=== PATIENT | female | born 1955 | race Caucasian/White ===

== ENCOUNTER 2018-05-06 12:24 | Emergency (ER) | payer OTHER ==
[~2018-05-06 12:24] MED LIST: ACETAZOLAMIDE250 MG PO; DIAMOX250 MG PO; LEVAQUIN750 M1 PO; MEDROL DOSEPAK4 MG PO; METFORMIN500 MG PO; METICORTEN1 MG PO; PREDNISONE10 MG PO; PROAIR HFA0.09 MG/AC INH; PROAIR HFA8.5 GM INH; SPIRIVA18 MCG PO; SYMBICORT1 AE1 INH; ZITHROMAX TRI-500 MG PO; ZITHROMAX500 MG PO
[2018-05-06] MEDS ORDERED: AVPAK AZITHROM250 MG PO (12:45)
[2018-05-06] MEDS ORDERED: PREDNISONE50 MG PO (12:45)
== END 2018-05-06 12:58 | disposition home or self-care (01) ==
LOC: ED 12:24
DX: J44.1 Chronic obstructive pulmonary disease with (acute) exacerbation (principal); I10 Essential (primary) hypertension; Z88.0 Allergy status to penicillin; Z79.899 Other long term (current) drug therapy

== ENCOUNTER 2018-07-19 06:23 | Inpatient (IN) | payer OTHER ==
[2018-07-19] VITALS (8 sets, daily range): BP systolic 101–120; BP diastolic 52–93
[~2018-07-19] VITALS: Ht 170.2 cm; Wt 63.0 kg
--- NOTE | ~2018-07-19 | EKG ---
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
--- NOTE | ~2018-07-19 | PR ---
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 She is gradually getting better, but she still has shortness of breath on exertion. She is a known case of COPD with emphysema, on oxygen at home, history of hypotension, leukocytosis, severe malnutrition, severe sepsis in the past, history of tachycardia in the past. OBJECTIVE: GENERAL: On examination, the patient is conscious, alert and oriented, sitting comfortably in the bed. VITAL SIGNS: Her blood pressure is 98/50, pulse 74, respirations 20, temperature 98.5. CHEST: Having occasional wheezes. No crepitation. HEART: Regular. ABDOMEN: Soft. Her blood culture is negative. EKG shows borderline left axis deviation, no acute change. CT of the chest shows bilateral upper lobe pneumonia. ProBNP is 45. The patient is gradually getting better. JAELYN JEROME MD CM:PNTRANS [id number] JAELYN JEROME MD 07/22/18 0643 interface
--- NOTE | ~2018-07-19 | DS ---
[place], [place] DISCHARGE SUMMARY [id number] UNIT #: [id number] ROOM: 502 DOCTOR: JAELYN JEROME MD BIRTHDATE: [birth year] DOS: The patient has been admitted to the hospital with acute excerebration of COPD with emphysema with bilateral pneumonia. She is gradually getting better. She does not have any chest pain. Her breathing with oxygen is fairly good. She is able to ambulate a little bit also and on examination, she does not have any wheezing or crepitation. Rest of her examination is fairly good. Her CBC today showed white count 10,400, hemoglobin 13.8, hematocrit 43.1. Creatinine level is 0.54. Her blood pressure 112/66, pulse 78, respirations 18, temperature 98.4. Chest is clear, heart is regular. The patient was treated with methylprednisone 125 mg IV, aerosol treatment with albuterol and cephalexin 1 g IV daily and doxycycline 100 mg twice daily. She has improved very well. She will look into take her antibiotic at home and also continue taking prednisone at home and have aerosol treatment at home and also take her Breo at home. I will follow her in the office next week. JAELYN JEROEM MD CM:EVITA [id number] JAELYN JEROME MD 07/22/18 1112 interface
[~2018-07-19 06:23] MED LIST changes: +AVPAK AZITHROM250 MG PO; +PREDNISONE50 MG PO
[2018-07-19 06:58] LABS: BASO % 0.2 % (0.0-1.0); EOS % 0.3 % (1.0-4.0); HEMATOCRIT 44.2 % (37.0-47.0); HEMOGLOBIN 13.7 g/dl (12.0-16.0); LYMPH # 0.7 10*3/uL (1.3-4.4); MEAN CELL VOLUME 96.9 fl (81.0-99.0); MEAN PLATELET VOLUME 10.1 fl (9.6-12.3); MONO # 0.8 10*3/uL (0.1-1.0); MONO % 8.4 % (3.0-9.0); NEUT # 7.6 10*3/uL (2.3-7.9); PLATELET COUNT AUTOMATED 175 10*3/uL (130-400); RED BLOOD COUNT 4.56 10*6/uL (4.10-5.10); RED CELL DISTRI WIDTH 12.1 % (0-14.5); WHITE BLOOD COUNT 9.2 10*3/uL (4.8-10.8)
[2018-07-19 07:06] LABS: ACT PARTIAL THROMBO TIME 24.9 SECONDS (20.8-31.5); INTERNATIONAL NORM RATIO 0.9 (2.0-3.5)
[2018-07-19 07:23] LABS: ALBUMIN 3.4 gm/dl (3.1-4.5); ALKALINE PHOSPHATASE 71 U/L (45-117); BUN 11 mg/dl (7-24); CHLORIDE 98 mmol/L (98-107); CREATININE 0.55 mg/dL (0.55-1.02); POTASSIUM 3.9 mmol/L (3.5-5.1); SGOT/AST 72 IU/L (3-35); SGPT/ALT 63 U/L (12-78); SODIUM 138 mmol/L (136-145); TOTAL PROTEIN 7.7 gm/dL (6.4-8.2)
[2018-07-19 07:29] LABS: TROPONIN I < 0.015 ng/ml (<0.045)
[2018-07-19] MEDS ORDERED: LEVAQUIN500 M2 PO (12:00)
[2018-07-19] MEDS ORDERED: BREO ELLIPTA 21 EACH INH (12:49)
[2018-07-19] MEDS ORDERED: INCRUSE ELLI62.5 MCG INH (12:51)
[2018-07-20] VITALS: BP 115/51
[2018-07-20 12:00] VITALS: BP 105/47
[2018-07-20 16:00] VITALS: BP 96/41
[2018-07-20 20:00] VITALS: BP 120/60
[2018-07-21] VITALS: BP 110/40
[2018-07-21 08:00] VITALS: BP 98/50
[2018-07-21 12:00] VITALS: BP 100/50
[2018-07-21 16:00] VITALS: BP 110/48
[2018-07-21 20:00] VITALS: BP 107/51
[2018-07-22] VITALS: BP 118/67
[2018-07-22 07:06] LABS: BASO % 0.1 % (0.0-1.0); HEMATOCRIT 43.1 % (37.0-47.0); HEMOGLOBIN 13.8 g/dl (12.0-16.0); LYMPH # 1.1 10*3/uL (1.3-4.4); LYMPH % 10.1 % (27.0-41.0); MEAN CELL VOLUME 95.6 fl (81.0-99.0); MEAN CORPUSCULAR HGB 30.6 pg (27.0-31.0); MONO # 0.5 10*3/uL (0.1-1.0); NEUT # 8.7 10*3/uL (2.3-7.9); NEUT % 84.3 % (47.0-73.0); PLATELET COUNT AUTOMATED 219 10*3/uL (130-400); RED BLOOD COUNT 4.51 10*6/uL (4.10-5.10); RED CELL DISTRI WIDTH 11.7 % (0-14.5); WHITE BLOOD COUNT 10.4 10*3/uL (4.8-10.8)
[2018-07-22 07:25] LABS: CREATININE 0.54 mg/dL (0.55-1.02)
[2018-07-22 08:00] VITALS: BP 112/66
== END 2018-07-22 11:43 | disposition home or self-care (01) | DRG 193 ==
LOC: ED 06:23 → 5E 07:30 → EDHOLD 07:30 → 5E 11:18
PROVIDERS: Internal Medicine; Student in an Organized Health Care Education/Training Program
DX: J18.1 Lobar pneumonia, unspecified organism (principal); J96.21 Acute and chronic respiratory failure with hypoxia; J43.9 Emphysema, unspecified; R91.1 Solitary pulmonary nodule; E05.80 Other thyrotoxicosis without thyrotoxic crisis or storm; Z88.1 Allergy status to other antibiotic agents; Z87.891 Personal history of nicotine dependence; Z87.01 Personal history of pneumonia (recurrent); Z82.49 Family history of ischemic heart disease and other diseases of the circulatory system; Z79.2 Long term (current) use of antibiotics; Z79.52 Long term (current) use of systemic steroids

== ENCOUNTER → 2018-07-27 | Outpatient (CLI) | payer OTHER ==
[~2018-07-27] MED LIST changes: +BREO ELLIPTA 21 EACH INH; +INCRUSE ELLI62.5 MCG INH; +LEVAQUIN500 M2 PO
== END | disposition home or self-care (01) ==
LOC: RAD 10:13
DX: J18.9 Pneumonia, unspecified organism (principal); J43.8 Other emphysema; Z87.891 Personal history of nicotine dependence

== ENCOUNTER → 2019-05-08 | Outpatient (CLI) | payer OTHER | END | disposition home or self-care (01) | LOC: US 14:30 | DX: R10.2 Pelvic and perineal pain (principal); R14.0 Abdominal distension (gaseous) ==

== ENCOUNTER 2019-09-14 12:50 | Emergency (ER) | payer OTHER, MEDICARE ==
[~2019-09-14] VITALS: Ht 170.1 cm; Wt 63.5 kg
[2019-09-14 12:54] VITALS: BP 102/57
== END 2019-09-14 15:45 | disposition home or self-care (01) ==
LOC: ED 12:50
DX: J44.9 Chronic obstructive pulmonary disease, unspecified (principal); Z99.81 Dependence on supplemental oxygen; Z79.2 Long term (current) use of antibiotics; Z79.899 Other long term (current) drug therapy; Z88.1 Allergy status to other antibiotic agents

== ENCOUNTER → 2020-11-16 | Outpatient (CLI) | payer OTHER, MEDICARE ==
[2020-11-16 09:43] LABS: BASO # 0.1 10*3/uL (0.0-0.1); BASO % 0.7 % (0.0-1.0); EOS # 0.3 10*3/uL (0.0-0.4); EOS % 2.7 % (1.0-4.0); HEMATOCRIT 43.4 % (37.0-47.0); LYMPH # 1.8 10*3/uL (1.3-4.4); LYMPH % 16.6 % (27.0-41.0); MEAN CELL VOLUME 95.4 fl (81.0-99.0); MEAN CORPUSCULAR HGB 29.2 pg (27.0-31.0); MEAN CORPUSCULAR HGB CONC 30.6 g/dl (33.0-37.0); MEAN PLATELET VOLUME 10.2 fl (9.6-12.3); MONO # 0.7 10*3/uL (0.1-1.0); MONO % 6.5 % (3.0-9.0); NEUT # 7.7 10*3/uL (2.3-7.9); NEUT % 73.3 % (47.0-73.0); PLATELET COUNT AUTOMATED 234 10*3/uL (130-400); RED BLOOD COUNT 4.55 10*6/uL (4.10-5.10); RED CELL DISTRI WIDTH 12.4 % (0-14.5); WHITE BLOOD COUNT 10.5 10*3/uL (4.8-10.8)
[2020-11-16 10:03] LABS: CHLORIDE 102 mmol/L (98-107); POTASSIUM 4.1 mmol/L (3.5-5.1); SODIUM 138 mmol/L (136-145)
[2020-11-16 11:04] LABS: ALBUMIN 3.2 gm/dl (3.1-4.5); ALKALINE PHOSPHATASE 85 U/L (45-117); BUN 11 mg/dl (7-24); CREATININE 0.57 mg/dL (0.55-1.02); FREE T4 1.09 ng/dl (0.76-1.46); SGOT/AST 37 IU/L (3-35); SGPT/ALT 51 U/L (12-78); TOTAL PROTEIN 7.4 gm/dL (6.4-8.2)
== END ==
LOC: LAB 08:52 → US 09:00
PROVIDERS: ATTEND Family Medicine
DX: K76.0 Fatty (change of) liver, not elsewhere classified (principal); R16.0 Hepatomegaly, not elsewhere classified; D72.829 Elevated white blood cell count, unspecified; R10.84 Generalized abdominal pain; R63.5 Abnormal weight gain

== ENCOUNTER → 2020-11-26 | Outpatient (CLI) | payer OTHER, MEDICARE | END | disposition home or self-care (01) | LOC: CT 12:32 | PROVIDERS: ATTEND Family Medicine | DX: K76.0 Fatty (change of) liver, not elsewhere classified (principal); J43.9 Emphysema, unspecified; K80.20 Calculus of gallbladder without cholecystitis without obstruction; I70.0 Atherosclerosis of aorta; K42.9 Umbilical hernia without obstruction or gangrene ==

== ENCOUNTER 2021-07-31 07:05 | Inpatient (IN) | payer OTHER, MEDICARE ==
[~2021-07-31] VITALS: Ht 167.6 cm; Wt 66.4 kg
[2021-07-31] VITALS (15 sets, daily range): BP systolic 84–128; BP diastolic 47–66
[~2021-07-31 07:05] MED LIST changes: +CLARITIN-D 121 EACH PO
[2021-07-31] MEDS ORDERED: MUCINEX DM 30/61 TAB PO (08:00)
[2021-07-31] MEDS ORDERED: AVPAK AZITHROM250 M1 PO (08:00)
[2021-07-31 08:06] LABS: BASO % 0.3 % (0.0-1.0); EOS # 0.1 10*3/uL (0.0-0.4); EOS % 0.5 % (1.0-4.0); HEMATOCRIT 43.7 % (37.0-47.0); LYMPH # 0.8 10*3/uL (1.3-4.4); LYMPH % 5.5 % (27.0-41.0); MEAN CELL VOLUME 96.7 fl (81.0-99.0); MEAN CORPUSCULAR HGB 28.8 pg (27.0-31.0); MEAN CORPUSCULAR HGB CONC 29.7 g/dl (33.0-37.0); MEAN PLATELET VOLUME 9.5 fl (9.6-12.3); MONO # 1.3 10*3/uL (0.1-1.0); NEUT # 12.6 10*3/uL (2.3-7.9); NEUT % 83.8 % (47.0-73.0); PLATELET COUNT AUTOMATED 295 10*3/uL (130-400); RED BLOOD COUNT 4.52 10*6/uL (4.10-5.10)
[2021-07-31 08:11] LABS: ABG BASE EXCESS 27.4 mmol/L (-2.0-2.0); ARTERIAL BLOOD GAS PH 7.257 (7.35-7.45); ARTERIAL BLOOD GAS PO2 51.2 (80-90)
[2021-07-31 08:22] LABS: ACT PARTIAL THROMBO TIME 26.2 SECONDS (20.0-32.1)
[2021-07-31 08:28] LABS: ALBUMIN 2.8 gm/dl (3.1-4.5); ALKALINE PHOSPHATASE 106 U/L (45-117); BUN 22 mg/dl (7-24); CHLORIDE 86 mmol/L (98-107); CPK 84 U/L (26-192); CREATININE 0.42 mg/dL (0.55-1.02); POTASSIUM 4.1 mmol/L (3.5-5.1); SGOT/AST 28 IU/L (3-35); SGPT/ALT 44 U/L (12-78); SODIUM 136 mmol/L (136-145); TOTAL PROTEIN 7.7 gm/dL (6.4-8.2)
[2021-07-31 12:27] LABS: ARTERIAL BLOOD GAS PH 7.213 (7.35-7.45); ARTERIAL BLOOD GAS PO2 68.4 (80-90)
[2021-07-31 17:10] LABS: ABG BASE EXCESS 22.9 mmol/L (-2.0-2.0); ARTERIAL BLOOD GAS PH 7.499 (7.35-7.45); ARTERIAL BLOOD GAS PO2 97.4 (80-90)
[2021-07-31 17:19] LABS: BILIRUBIN Negative (Negative); BLOOD Negative (Negative); CLARITY Clear (Clear); COLOR Yellow (Yellow); GLUCOSE Negative (Negative); KETONE 1+ (Negative); LEUKO ESTERASE Negative (Negative); NITRITE Negative (Negative); PH 5.5 (4.5-8.0); SPECIFIC GRAVITY 1.025 (1.001-1.030); UROBILINOGEN 0.2 E.U./dl (0.0-1.0)
[2021-07-31 17:47] LABS: BACTERIA 2+; EPITHELIAL CELLS 21-30
[2021-08-01] VITALS (19 sets, daily range): BP systolic 87–123; BP diastolic 43–75
[2021-08-01 04:58] LABS: ALBUMIN 2.1 gm/dl (3.1-4.5); ALKALINE PHOSPHATASE 80 U/L (45-117); BUN 25 mg/dl (7-24); CHLORIDE 93 mmol/L (98-107); CREATININE 0.54 mg/dL (0.55-1.02); POTASSIUM 4.3 mmol/L (3.5-5.1); SGOT/AST 41 IU/L (3-35); SGPT/ALT 35 U/L (12-78); SODIUM 136 mmol/L (136-145); TOTAL PROTEIN 6.1 gm/dL (6.4-8.2)
[2021-08-01 06:04] LABS: BASO # 0.1 10*3/uL (0.0-0.1); BASO % 0.4 % (0.0-1.0); EOS % 0.1 % (1.0-4.0); HEMATOCRIT 36.6 % (37.0-47.0); LYMPH % 6.8 % (27.0-41.0); MEAN CELL VOLUME 97.3 fl (81.0-99.0); MEAN CORPUSCULAR HGB 28.7 pg (27.0-31.0); MEAN CORPUSCULAR HGB CONC 29.5 g/dl (33.0-37.0); MEAN PLATELET VOLUME 10.4 fl (9.6-12.3); MONO # 0.6 10*3/uL (0.1-1.0); MONO % 4.3 % (3.0-9.0); NEUT # 12.2 10*3/uL (2.3-7.9); NEUT % 86.8 % (47.0-73.0); PLATELET COUNT AUTOMATED 249 10*3/uL (130-400); RED BLOOD COUNT 3.76 10*6/uL (4.10-5.10); RED CELL DISTRI WIDTH 12.1 % (0-14.5)
[2021-08-01 13:28] LABS: HEMATOCRIT 35.9 % (37.0-47.0); MEAN CELL VOLUME 95.5 fl (81.0-99.0); MEAN CORPUSCULAR HGB 29.3 pg (27.0-31.0); MEAN CORPUSCULAR HGB CONC 30.6 g/dl (33.0-37.0); MEAN PLATELET VOLUME 9.8 fl (9.6-12.3); PLATELET COUNT AUTOMATED 242 10*3/uL (130-400); RED BLOOD COUNT 3.76 10*6/uL (4.10-5.10); RED CELL DISTRI WIDTH 12.2 % (0-14.5); WHITE BLOOD COUNT 15.4 10*3/uL (4.8-10.8)
[2021-08-01 13:44] LABS: ALBUMIN 2.2 gm/dl (3.1-4.5); ALKALINE PHOSPHATASE 87 U/L (45-117); BUN 26 mg/dl (7-24); CHLORIDE 95 mmol/L (98-107); CREATININE 0.52 mg/dL (0.55-1.02); PLATELET SUFFICIENCY NORMAL (NORMAL); POTASSIUM 3.8 mmol/L (3.5-5.1); SGOT/AST 59 IU/L (3-35); SGPT/ALT 55 U/L (12-78); SODIUM 140 mmol/L (136-145); TOTAL CELLS COUNTED 100 #CELLS; TOTAL PROTEIN 6.2 gm/dL (6.4-8.2)
[2021-08-01 13:45] LABS: OVALOCYTES FEW; POLYCHROMASIA SLIGHT
[2021-08-01 15:33] LABS: ABG BASE EXCESS 15.9 mmol/L (-2.0-2.0); ARTERIAL BLOOD GAS PH 7.468 (7.35-7.45); ARTERIAL BLOOD GAS PO2 87.5 (80-90)
[2021-08-02] VITALS (13 sets, daily range): BP systolic 90–111; BP diastolic 49–64
[2021-08-02 05:45] LABS: ALKALINE PHOSPHATASE 82 U/L (45-117); BUN 22 mg/dl (7-24); CHLORIDE 99 mmol/L (98-107); CREATININE 0.37 mg/dL (0.55-1.02); POTASSIUM 3.8 mmol/L (3.5-5.1); SGOT/AST 43 IU/L (3-35); SGPT/ALT 55 U/L (12-78); SODIUM 141 mmol/L (136-145)
[2021-08-02 17:30] LABS: HEMATOCRIT 35.9 % (37.0-47.0); MEAN CORPUSCULAR HGB 29.4 pg (27.0-31.0); MEAN CORPUSCULAR HGB CONC 30.9 g/dl (33.0-37.0); MEAN PLATELET VOLUME 9.9 fl (9.6-12.3); NUCLEATED RED BLOOD CELL 0.1 % (0.0-0.0); PLATELET COUNT AUTOMATED 256 10*3/uL (130-400); RED BLOOD COUNT 3.78 10*6/uL (4.10-5.10); RED CELL DISTRI WIDTH 12.5 % (0-14.5); WHITE BLOOD COUNT 14.9 10*3/uL (4.8-10.8)
[2021-08-02 19:32] LABS: PLATELET SUFFICIENCY NORMAL (NORMAL); TOTAL CELLS COUNTED 100 #CELLS
[2021-08-02 20:07] LABS: ABG BASE EXCESS 9.7 mmol/L (-2.0-2.0); ARTERIAL BLOOD GAS PH 7.451 (7.35-7.45)
[2021-08-02] MEDS ORDERED: SYMB160 INH (21:37)
[2021-08-03] VITALS (11 sets, daily range): BP systolic 92–109; BP diastolic 52–71
[2021-08-03 05:35] LABS: ALBUMIN 2.1 gm/dl (3.1-4.5); ALKALINE PHOSPHATASE 71 U/L (45-117); BUN 23 mg/dl (7-24); CHLORIDE 105 mmol/L (98-107); CREATININE 0.46 mg/dL (0.55-1.02); POTASSIUM 4.3 mmol/L (3.5-5.1); SGOT/AST 50 IU/L (3-35); SGPT/ALT 58 U/L (12-78); SODIUM 140 mmol/L (136-145); TRIGLYCERIDES 338 mg/dl (<150)
[2021-08-03 06:10] LABS: HEMATOCRIT 37.3 % (37.0-47.0); MEAN CELL VOLUME 96.9 fl (81.0-99.0); MEAN CORPUSCULAR HGB 28.8 pg (27.0-31.0); MEAN CORPUSCULAR HGB CONC 29.8 g/dl (33.0-37.0); MEAN PLATELET VOLUME 10.5 fl (9.6-12.3); NUCLEATED RED BLOOD CELL 0.1 % (0.0-0.0); PLATELET COUNT AUTOMATED 243 10*3/uL (130-400); RED BLOOD COUNT 3.85 10*6/uL (4.10-5.10); RED CELL DISTRI WIDTH 12.7 % (0-14.5); WHITE BLOOD COUNT 13.6 10*3/uL (4.8-10.8)
[2021-08-03 07:37] LABS: TOTAL CELLS COUNTED 100 #CELLS
[2021-08-03 07:38] LABS: OVALOCYTES FEW; PLATELET SUFFICIENCY NORMAL (NORMAL); POLYCHROMASIA SLIGHT; ROULEAUX SLIGHT
[2021-08-04] VITALS (10 sets, daily range): BP systolic 93–121; BP diastolic 46–60
[2021-08-04 06:29] LABS: BUN 23 mg/dl (7-24); CHLORIDE 104 mmol/L (98-107); POTASSIUM 4.2 mmol/L (3.5-5.1); SODIUM 141 mmol/L (136-145)
[2021-08-04 06:43] LABS: HEMATOCRIT 34.1 % (37.0-47.0); MEAN CELL VOLUME 95.5 fl (81.0-99.0); MEAN CORPUSCULAR HGB 29.4 pg (27.0-31.0); MEAN CORPUSCULAR HGB CONC 30.8 g/dl (33.0-37.0); MEAN PLATELET VOLUME 10.7 fl (9.6-12.3); PLATELET COUNT AUTOMATED 261 10*3/uL (130-400); RED BLOOD COUNT 3.57 10*6/uL (4.10-5.10); RED CELL DISTRI WIDTH 12.7 % (0-14.5); WHITE BLOOD COUNT 11.6 10*3/uL (4.8-10.8)
[2021-08-04 07:49] LABS: ATYPICAL LYMPHS 1 % (0-0); TOTAL CELLS COUNTED 100 #CELLS
[2021-08-04 07:50] LABS: PLATELET SUFFICIENCY NORMAL (NORMAL); POLYCHROMASIA SLIGHT
[2021-08-04 07:51] LABS: ROULEAUX SLIGHT
[2021-08-05] VITALS: BP 105/41
[2021-08-05 04:00] VITALS: BP 110/51
[2021-08-05 08:00] VITALS: BP 114/51
[2021-08-05 12:00] VITALS: BP 100/49
[2021-08-05 16:00] VITALS: BP 106/42
[2021-08-05 20:00] VITALS: BP 93/46
[2021-08-06] VITALS: BP 100/53
[2021-08-06 04:00] VITALS: BP 99/50
[2021-08-06 08:00] VITALS: BP 90/42
[2021-08-06 11:05] LABS: HEMATOCRIT 38.5 % (37.0-47.0); MEAN CELL VOLUME 94.1 fl (81.0-99.0); MEAN CORPUSCULAR HGB 28.9 pg (27.0-31.0); MEAN CORPUSCULAR HGB CONC 30.6 g/dl (33.0-37.0); MEAN PLATELET VOLUME 9.7 fl (9.6-12.3); PLATELET COUNT AUTOMATED 240 10*3/uL (130-400); RED BLOOD COUNT 4.09 10*6/uL (4.10-5.10); RED CELL DISTRI WIDTH 12.1 % (0-14.5)
[2021-08-06 11:21] LABS: ALBUMIN 2.4 gm/dl (3.1-4.5); ALKALINE PHOSPHATASE 66 U/L (45-117); BUN 14 mg/dl (7-24); CHLORIDE 93 mmol/L (98-107); CREATININE 0.45 mg/dL (0.55-1.02); POTASSIUM 4.8 mmol/L (3.5-5.1); SGOT/AST 52 IU/L (3-35); SGPT/ALT 107 U/L (12-78); SODIUM 138 mmol/L (136-145); TOTAL PROTEIN 6.3 gm/dL (6.4-8.2)
[2021-08-06 11:33] LABS: PLATELET SUFFICIENCY NORMAL (NORMAL); TOTAL CELLS COUNTED 100 #CELLS
[2021-08-06 11:40] VITALS: BP 101/47
[2021-08-06 14:11] LABS: BUN 13 mg/dl (7-24); CHLORIDE 93 mmol/L (98-107); CREATININE 0.45 mg/dL (0.55-1.02); SODIUM 141 mmol/L (136-145)
[2021-08-06 14:19] LABS: POTASSIUM 3.5 mmol/L (3.5-5.1)
[2021-08-06 16:00] VITALS: BP 116/53
[2021-08-06 20:00] VITALS: BP 118/53
[2021-08-07] VITALS: BP 98/62
[2021-08-07 07:21] LABS: BASO % 0.1 % (0.0-1.0); EOS % 0.1 % (1.0-4.0); LYMPH # 1.1 10*3/uL (1.3-4.4); LYMPH % 7.9 % (27.0-41.0); MEAN CELL VOLUME 95.5 fl (81.0-99.0); MEAN CORPUSCULAR HGB 28.9 pg (27.0-31.0); MEAN CORPUSCULAR HGB CONC 30.3 g/dl (33.0-37.0); MEAN PLATELET VOLUME 9.8 fl (9.6-12.3); MONO # 0.4 10*3/uL (0.1-1.0); MONO % 2.9 % (3.0-9.0); NEUT % 87.6 % (47.0-73.0); PLATELET COUNT AUTOMATED 236 10*3/uL (130-400); RED BLOOD COUNT 4.19 10*6/uL (4.10-5.10); RED CELL DISTRI WIDTH 12.1 % (0-14.5); WHITE BLOOD COUNT 13.7 10*3/uL (4.8-10.8)
[2021-08-07 07:34] LABS: BUN 15 mg/dl (7-24); CHLORIDE 89 mmol/L (98-107); POTASSIUM 3.9 mmol/L (3.5-5.1); SODIUM 138 mmol/L (136-145)
[2021-08-07 08:00] VITALS: BP 130/64
[2021-08-07 08:15] LABS: ABG BASE EXCESS 24.3 mmol/L (-2.0-2.0); ARTERIAL BLOOD GAS PH 7.402 (7.35-7.45); ARTERIAL BLOOD GAS PO2 81.7 (80-90)
[2021-08-07 12:00] VITALS: BP 108/52
[2021-08-07 16:00] VITALS: BP 132/70
[2021-08-07 20:00] VITALS: BP 107/49
[2021-08-08] VITALS: BP 110/55
[2021-08-08 07:21] LABS: CHLORIDE 96 mmol/L (98-107); POTASSIUM 3.6 mmol/L (3.5-5.1); SODIUM 139 mmol/L (136-145)
[2021-08-08 07:39] LABS: ALBUMIN 2.8 gm/dl (3.1-4.5); ALKALINE PHOSPHATASE 69 U/L (45-117); BUN 15 mg/dl (7-24); CREATININE 0.36 mg/dL (0.55-1.02); SGOT/AST 34 IU/L (3-35); SGPT/ALT 105 U/L (12-78); TOTAL PROTEIN 6.8 gm/dL (6.4-8.2)
[2021-08-08 07:47] LABS: BASO % 0.1 % (0.0-1.0); HEMATOCRIT 40.6 % (37.0-47.0); LYMPH # 1.1 10*3/uL (1.3-4.4); LYMPH % 10.1 % (27.0-41.0); MEAN CELL VOLUME 95.8 fl (81.0-99.0); MEAN CORPUSCULAR HGB 29.2 pg (27.0-31.0); MEAN CORPUSCULAR HGB CONC 30.5 g/dl (33.0-37.0); MEAN PLATELET VOLUME 10.2 fl (9.6-12.3); MONO # 0.7 10*3/uL (0.1-1.0); MONO % 6.5 % (3.0-9.0); NEUT # 9.2 10*3/uL (2.3-7.9); NEUT % 82.5 % (47.0-73.0); PLATELET COUNT AUTOMATED 247 10*3/uL (130-400); RED BLOOD COUNT 4.24 10*6/uL (4.10-5.10); RED CELL DISTRI WIDTH 12.1 % (0-14.5); WHITE BLOOD COUNT 11.2 10*3/uL (4.8-10.8)
[2021-08-08 08:00] VITALS: BP 85/44
[2021-08-08 12:00] VITALS: BP 98/42
[2021-08-08 16:00] VITALS: BP 99/68
[2021-08-08 20:00] VITALS: BP 103/56
[2021-08-09] VITALS: BP 102/59
[2021-08-09 08:00] VITALS: BP 104/55
[2021-08-09 16:00] VITALS: BP 95/52
[2021-08-09 20:00] VITALS: BP 93/41
[2021-08-09 20:28] VITALS: BP 98/42
[2021-08-10] VITALS: BP 100/56
[2021-08-10 06:29] LABS: BASO % 0.1 % (0.0-1.0); HEMATOCRIT 42.3 % (37.0-47.0); LYMPH # 0.9 10*3/uL (1.3-4.4); LYMPH % 8.3 % (27.0-41.0); MEAN CELL VOLUME 94.4 fl (81.0-99.0); MEAN CORPUSCULAR HGB 28.8 pg (27.0-31.0); MEAN CORPUSCULAR HGB CONC 30.5 g/dl (33.0-37.0); MEAN PLATELET VOLUME 10.4 fl (9.6-12.3); MONO # 0.5 10*3/uL (0.1-1.0); MONO % 4.8 % (3.0-9.0); NEUT # 9.7 10*3/uL (2.3-7.9); NEUT % 86.4 % (47.0-73.0); PLATELET COUNT AUTOMATED 269 10*3/uL (130-400); RED BLOOD COUNT 4.48 10*6/uL (4.10-5.10); RED CELL DISTRI WIDTH 12.2 % (0-14.5); WHITE BLOOD COUNT 11.3 10*3/uL (4.8-10.8)
[2021-08-10 06:42] LABS: CHLORIDE 100 mmol/L (98-107); POTASSIUM 4.1 mmol/L (3.5-5.1); SODIUM 139 mmol/L (136-145)
[2021-08-10 06:47] LABS: BUN 22 mg/dl (7-24); CREATININE 0.54 mg/dL (0.55-1.02)
[2021-08-10 08:00] VITALS: BP 92/51
[2021-08-10 12:00] VITALS: BP 102/53
[2021-08-10 16:00] VITALS: BP 95/53
[2021-08-10 20:00] VITALS: BP 93/49
[2021-08-11] VITALS: BP 113/49
[2021-08-11 12:00] VITALS: BP 106/54
[2021-08-11] MEDS ORDERED: METFORMIN HYDR500 MG PO (15:59)
[2021-08-11] MEDS ORDERED: PREDNISONE10 MG PO (15:59)
[2021-08-11 16:00] VITALS: BP 106/54; BP 94/40
[2021-08-11] MEDS ORDERED: ELIQUIS5 M1 PO (16:51)
== END 2021-08-11 18:40 | disposition home health service (06) | DRG 871 ==
LOC: ED 07:05 → 5E 09:19 → EDHOLD 09:19 → ICCU 09:19 → EDHOLD 09:19 → ICCU 09:19 → EDHOLD 08-02 07:33 → ICCU 08-02 15:50 → 5E 08-06 13:13
PROVIDERS: Emergency Medicine; Hospitalist; Internal Medicine Pulmonary Disease; ADMIT Internal Medicine; ATTEND Internal Medicine
PROC: 5A09357 Assistance with Respiratory Ventilation, Less than 24 Consecutive Hours, Continuous Positive Airway Pressure (ICD-10-PCS; principal; 2021-07-31)
PROC: 0BH17EZ Insertion of Endotracheal Airway into Trachea, Via Natural or Artificial Opening (ICD-10-PCS; 2021-07-31)
PROC: 5A1945Z Respiratory Ventilation, 24-96 Consecutive Hours (ICD-10-PCS; 2021-07-31)
PROC: 5A09357 Assistance with Respiratory Ventilation, Less than 24 Consecutive Hours, Continuous Positive Airway Pressure (ICD-10-PCS; 2021-08-02)
PROC: 5A1945Z Respiratory Ventilation, 24-96 Consecutive Hours (ICD-10-PCS; 2021-08-02)
PROC: 5A09357 Assistance with Respiratory Ventilation, Less than 24 Consecutive Hours, Continuous Positive Airway Pressure (ICD-10-PCS; 2021-08-04)
PROC: 5A0935A Assistance with Respiratory Ventilation, Less than 24 Consecutive Hours, High Flow/Velocity Cannula (ICD-10-PCS; 2021-08-05)
PROC: 5A09357 Assistance with Respiratory Ventilation, Less than 24 Consecutive Hours, Continuous Positive Airway Pressure (ICD-10-PCS; 2021-08-08)
PROC: 5A09357 Assistance with Respiratory Ventilation, Less than 24 Consecutive Hours, Continuous Positive Airway Pressure (ICD-10-PCS; 2021-08-09)
DX: A41.9 Sepsis, unspecified organism (principal); J18.9 Pneumonia, unspecified organism; J96.21 Acute and chronic respiratory failure with hypoxia; J96.22 Acute and chronic respiratory failure with hypercapnia; E43 Unspecified severe protein-calorie malnutrition; J44.0 Chronic obstructive pulmonary disease with (acute) lower respiratory infection; J44.1 Chronic obstructive pulmonary disease with (acute) exacerbation; I48.0 Paroxysmal atrial fibrillation; Z79.899 Other long term (current) drug therapy; R73.9 Hyperglycemia, unspecified; J20.9 Acute bronchitis, unspecified; I95.9 Hypotension, unspecified; R65.20 Severe sepsis without septic shock; Z20.822 Contact with and (suspected) exposure to COVID-19; Z87.891 Personal history of nicotine dependence; Z99.81 Dependence on supplemental oxygen; Z88.8 Allergy status to other drugs, medicaments and biological substances; Z79.51 Long term (current) use of inhaled steroids; Z68.24 Body mass index [BMI] 24.0-24.9, adult

== ENCOUNTER 2023-04-05 04:49 | Inpatient (IN) | payer OTHER, MEDICARE ==
[~2023-04-05] VITALS: Ht 170.2 cm; Wt 68.9 kg
[~2023-04-05 04:49] MED LIST changes: +AVPAK AZITHROM250 M1 PO; +ELIQUIS5 M1 PO; +METFORMIN HYDR500 MG PO; +MUCINEX DM 30/61 TAB PO; +SYMB160 INH
[2023-04-05 05:24] VITALS: BP 65/53; BP 95/53
[2023-04-05 06:04] LABS: BASO % 0.3 % (0.0-1.0); EOS % 0.2 % (1.0-4.0); HEMATOCRIT 39.2 % (37.0-47.0); LYMPH # 0.8 10*3/uL (1.3-4.4); LYMPH % 6.6 % (27.0-41.0); MEAN CELL VOLUME 88.9 fl (81.0-99.0); MEAN CORPUSCULAR HGB 28.8 pg (27.0-31.0); MEAN CORPUSCULAR HGB CONC 32.4 g/dl (33.0-37.0); MEAN PLATELET VOLUME 9.6 fl (9.6-12.3); MONO % 9.1 % (3.0-9.0); NEUT # 9.6 10*3/uL (2.3-7.9); NEUT % 83.4 % (47.0-73.0); PLATELET COUNT AUTOMATED 210 10*3/uL (130-400); RED BLOOD COUNT 4.41 10*6/uL (4.10-5.10); RED CELL DISTRI WIDTH 13.4 % (0-14.5); WHITE BLOOD COUNT 11.5 10*3/uL (4.8-10.8)
[2023-04-05 06:16] LABS: ALKALINE PHOSPHATASE 74 U/L (46-116); BUN 10 mg/dl (9-23); CHLORIDE 94 mmol/L (98-107); LIPASE 43 U/L (12-53); POTASSIUM 3.8 mmol/L (3.4-5.1); SGPT/ALT 49 U/L (10-49); TOTAL PROTEIN 7.6 gm/dL (6.0-8.0)
[2023-04-05 06:33] LABS: ACT PARTIAL THROMBO TIME 48.3 SECONDS (20.0-32.1); INTERNATIONAL NORM RATIO 1.3 (2.0-3.5)
[2023-04-05 08:07] VITALS: BP 102/53
[2023-04-05 11:51] VITALS: BP 95/49
[2023-04-05 17:15] VITALS: BP 100/54
[2023-04-06] VITALS: BP 113/50
[2023-04-06 08:00] VITALS: BP 96/52
[2023-04-06 12:00] VITALS: BP 100/52
[2023-04-06 12:32] VITALS: BP 107/57
[2023-04-06 20:00] VITALS: BP 102/53
[2023-04-07] VITALS: BP 96/55
[2023-04-07 07:23] LABS: BASO % 0.4 % (0.0-1.0); EOS % 0.4 % (1.0-4.0); LYMPH # 1.4 10*3/uL (1.3-4.4); LYMPH % 25.6 % (27.0-41.0); MEAN CELL VOLUME 91.3 fl (81.0-99.0); MEAN CORPUSCULAR HGB 28.1 pg (27.0-31.0); MEAN CORPUSCULAR HGB CONC 30.8 g/dl (33.0-37.0); MEAN PLATELET VOLUME 9.9 fl (9.6-12.3); MONO # 0.6 10*3/uL (0.1-1.0); MONO % 10.9 % (3.0-9.0); NEUT # 3.4 10*3/uL (2.3-7.9); NEUT % 62.5 % (47.0-73.0); PLATELET COUNT AUTOMATED 194 10*3/uL (130-400); RED BLOOD COUNT 4.38 10*6/uL (4.10-5.10); RED CELL DISTRI WIDTH 13.3 % (0-14.5); WHITE BLOOD COUNT 5.4 10*3/uL (4.8-10.8)
[2023-04-07 07:58] LABS: ALKALINE PHOSPHATASE 65 U/L (46-116); BUN 11 mg/dl (9-23); CHLORIDE 98 mmol/L (98-107); LDH 182 U/L (120-246); POTASSIUM 4.2 mmol/L (3.4-5.1); SGPT/ALT 41 U/L (10-49); TOTAL PROTEIN 6.8 gm/dL (6.0-8.0)
[2023-04-07 08:00] VITALS: BP 94/59
[2023-04-07 12:00] VITALS: BP 102/68
[2023-04-07 16:00] VITALS: BP 119/64
[2023-04-07 20:00] VITALS: BP 117/54
[2023-04-08] VITALS: BP 94/64
[2023-04-08 06:29] LABS: BASO % 0.2 % (0.0-1.0); EOS % 0.2 % (1.0-4.0); LYMPH # 1.4 10*3/uL (1.3-4.4); LYMPH % 25.9 % (27.0-41.0); MEAN CELL VOLUME 92.7 fl (81.0-99.0); MEAN CORPUSCULAR HGB 28.9 pg (27.0-31.0); MEAN CORPUSCULAR HGB CONC 31.2 g/dl (33.0-37.0); MEAN PLATELET VOLUME 9.8 fl (9.6-12.3); MONO # 0.6 10*3/uL (0.1-1.0); MONO % 10.2 % (3.0-9.0); NEUT # 3.4 10*3/uL (2.3-7.9); NEUT % 63.3 % (47.0-73.0); PLATELET COUNT AUTOMATED 213 10*3/uL (130-400); RED BLOOD COUNT 4.64 10*6/uL (4.10-5.10); RED CELL DISTRI WIDTH 13.6 % (0-14.5); WHITE BLOOD COUNT 5.4 10*3/uL (4.8-10.8)
[2023-04-08 08:00] VITALS: BP 107/57
[2023-04-08 12:00] VITALS: BP 127/57
[2023-04-08 14:29] VITALS: BP 127/57
[2023-04-08 16:00] VITALS: BP 105/61
[2023-04-08 20:00] VITALS: BP 106/66
[2023-04-09] VITALS: BP 110/64
[2023-04-09 06:10] LABS: BASO % 0.4 % (0.0-1.0); EOS % 0.6 % (1.0-4.0); HEMATOCRIT 43.3 % (37.0-47.0); LYMPH # 1.3 10*3/uL (1.3-4.4); LYMPH % 25.7 % (27.0-41.0); MEAN CELL VOLUME 91.5 fl (81.0-99.0); MEAN CORPUSCULAR HGB 28.5 pg (27.0-31.0); MEAN CORPUSCULAR HGB CONC 31.2 g/dl (33.0-37.0); MEAN PLATELET VOLUME 10.1 fl (9.6-12.3); MONO # 0.6 10*3/uL (0.1-1.0); MONO % 10.6 % (3.0-9.0); NEUT # 3.2 10*3/uL (2.3-7.9); NEUT % 61.9 % (47.0-73.0); PLATELET COUNT AUTOMATED 217 10*3/uL (130-400); RED BLOOD COUNT 4.73 10*6/uL (4.10-5.10); RED CELL DISTRI WIDTH 13.4 % (0-14.5); WHITE BLOOD COUNT 5.2 10*3/uL (4.8-10.8)
[2023-04-09 07:16] LABS: ALKALINE PHOSPHATASE 69 U/L (46-116); BUN 16 mg/dl (9-23); CHLORIDE 102 mmol/L (98-107); POTASSIUM 3.4 mmol/L (3.4-5.1); SGPT/ALT 35 U/L (10-49); TOTAL PROTEIN 7.4 gm/dL (6.0-8.0)
[2023-04-09 08:00] VITALS: BP 112/62
[2023-04-09] MEDS ORDERED: DOXYCYCLINE HY100 M3 PO (14:25)
[2023-04-09] MEDS ORDERED: CEFUROXIME AXE500 MG PO (14:27)
[2023-04-09] MEDS ORDERED: DECADRON4 MG PO (14:27)
[2023-04-09] MEDS ORDERED: MUCINEX1200 M1 PO (15:54)
== END 2023-04-09 18:00 | disposition home or self-care (01) | DRG 177 ==
LOC: ED 04:49 → 4E 08:36 → EDHOLD 08:36 → 4E 16:42
PROVIDERS: Internal Medicine; Internal Medicine Critical Care Medicine; ADMIT Internal Medicine; ATTEND Internal Medicine
PROC: XW033E5 Introduction of Remdesivir Anti-infective into Peripheral Vein, Percutaneous Approach, New Technology Group 5 (ICD-10-PCS; principal; 2023-04-05)
PROC: 3E0333Z Introduction of Anti-inflammatory into Peripheral Vein, Percutaneous Approach (ICD-10-PCS; 2023-04-05)
DX: U07.1 COVID-19 (principal); J12.82 Pneumonia due to coronavirus disease 2019; J96.21 Acute and chronic respiratory failure with hypoxia; E87.3 Alkalosis; E44.0 Moderate protein-calorie malnutrition; J98.11 Atelectasis; E05.80 Other thyrotoxicosis without thyrotoxic crisis or storm; K76.0 Fatty (change of) liver, not elsewhere classified; J43.9 Emphysema, unspecified; R74.01 Elevation of levels of liver transaminase levels; R91.1 Solitary pulmonary nodule; Z88.0 Allergy status to penicillin; Z79.01 Long term (current) use of anticoagulants; Z79.899 Other long term (current) drug therapy; Z87.01 Personal history of pneumonia (recurrent); Z87.891 Personal history of nicotine dependence; Z82.49 Family history of ischemic heart disease and other diseases of the circulatory system; Z28.310 Unvaccinated for COVID-19; Z84.89 Family history of other specified conditions; Z68.23 Body mass index [BMI] 23.0-23.9, adult

== ENCOUNTER 2023-04-15 16:18 | Inpatient (IN) | payer OTHER, MEDICARE ==
[~2023-04-15] VITALS: Ht 167.6 cm; Wt 67.2 kg
[~2023-04-15 16:18] MED LIST changes: +CEFUROXIME AXE500 MG PO; +DECADRON4 MG PO; +DOXYCYCLINE HY100 M3 PO; +MUCINEX1200 M1 PO
[2023-04-15 16:39] VITALS: BP 139/79
[2023-04-15 16:45] LABS: HEMATOCRIT 42.8 % (37.0-47.0); MEAN CELL VOLUME 89.5 fl (81.0-99.0); MEAN CORPUSCULAR HGB 28.9 pg (27.0-31.0); MEAN CORPUSCULAR HGB CONC 32.2 g/dl (33.0-37.0); MEAN PLATELET VOLUME 9.9 fl (9.6-12.3); PLATELET COUNT AUTOMATED 310 10*3/uL (130-400); RED BLOOD COUNT 4.78 10*6/uL (4.10-5.10); RED CELL DISTRI WIDTH 13.2 % (0-14.5); WHITE BLOOD COUNT 28.6 10*3/uL (4.8-10.8)
[2023-04-15 16:56] LABS: MANUAL DIFF REFLEX YES
[2023-04-15 16:58] LABS: ABG BASE EXCESS 4.9 mmol/L (-2.0-2.0); ARTERIAL BLOOD GAS PH 7.201 (7.35-7.45); ARTERIAL BLOOD GAS PO2 84.4 (80-90)
[2023-04-15 17:02] LABS: ALKALINE PHOSPHATASE 74 U/L (46-116); BUN 13 mg/dl (9-23); CHLORIDE 95 mmol/L (98-107); POTASSIUM 3.3 mmol/L (3.4-5.1); SGPT/ALT 45 U/L (10-49); TOTAL PROTEIN 7.6 gm/dL (6.0-8.0)
[2023-04-15 17:08] VITALS: BP 112/68; BP 122/91
[2023-04-15 17:08] LABS: PLATELET SUFFICIENCY NORMAL (NORMAL); TOTAL CELLS COUNTED 100 #CELLS
[2023-04-15 17:24] VITALS: BP 112/68
[2023-04-15 18:25] VITALS: BP 131/80
[2023-04-15 20:34] VITALS: BP 131/56
[2023-04-15 22:10] VITALS: BP 142/61
[2023-04-15 22:45] LABS: ABG BASE EXCESS 8.7 mmol/L (-2.0-2.0); ARTERIAL BLOOD GAS PH 7.277 (7.35-7.45); ARTERIAL BLOOD GAS PO2 237.4 (80-90)
[2023-04-15] MEDS ORDERED: XARE20MG PO (23:25)
[2023-04-16 04:00] VITALS: BP 115/73
[2023-04-16 06:38] LABS: HEMATOCRIT 39.9 % (37.0-47.0); MEAN CELL VOLUME 91.9 fl (81.0-99.0); MEAN CORPUSCULAR HGB 28.6 pg (27.0-31.0); MEAN CORPUSCULAR HGB CONC 31.1 g/dl (33.0-37.0); MEAN PLATELET VOLUME 10.2 fl (9.6-12.3); PLATELET COUNT AUTOMATED 223 10*3/uL (130-400); RED BLOOD COUNT 4.34 10*6/uL (4.10-5.10); RED CELL DISTRI WIDTH 13.2 % (0-14.5); WHITE BLOOD COUNT 14.6 10*3/uL (4.8-10.8)
[2023-04-16 06:52] LABS: MANUAL DIFF REFLEX YES
[2023-04-16 07:01] LABS: ALKALINE PHOSPHATASE 62 U/L (46-116); BUN 10 mg/dl (9-23); CHLORIDE 97 mmol/L (98-107); POTASSIUM 3.9 mmol/L (3.4-5.1); SGPT/ALT 49 U/L (10-49); TOTAL PROTEIN 6.9 gm/dL (6.0-8.0)
[2023-04-16 07:22] LABS: ABG BASE EXCESS 13.5 mmol/L (-2.0-2.0); ARTERIAL BLOOD GAS PH 7.384 (7.35-7.45); ARTERIAL BLOOD GAS PO2 152.1 (80-90)
[2023-04-16 07:28] LABS: OVALOCYTES FEW; POLYCHROMASIA SLIGHT; TOTAL CELLS COUNTED 100 #CELLS
[2023-04-16 07:29] LABS: PLATELET SUFFICIENCY NORMAL (NORMAL); TOXIC GRANULATION SLIGHT
[2023-04-16 08:00] VITALS: BP 111/76
[2023-04-16 12:00] VITALS: BP 115/44
[2023-04-16 16:00] VITALS: BP 118/66
[2023-04-16 20:00] VITALS: BP 113/60
[2023-04-17] VITALS: BP 118/59
[2023-04-17 04:00] VITALS: BP 124/58
[2023-04-17 06:01] LABS: HEMATOCRIT 37.4 % (37.0-47.0); MEAN CELL VOLUME 91.2 fl (81.0-99.0); MEAN CORPUSCULAR HGB 27.8 pg (27.0-31.0); MEAN CORPUSCULAR HGB CONC 30.5 g/dl (33.0-37.0); MEAN PLATELET VOLUME 10.2 fl (9.6-12.3); PLATELET COUNT AUTOMATED 210 10*3/uL (130-400); RED CELL DISTRI WIDTH 13.1 % (0-14.5)
[2023-04-17 06:18] LABS: MANUAL DIFF REFLEX YES
[2023-04-17 07:01] LABS: ALKALINE PHOSPHATASE 58 U/L (46-116); BUN 12 mg/dl (9-23); CHLORIDE 100 mmol/L (98-107); SGPT/ALT 45 U/L (10-49); TOTAL PROTEIN 6.6 gm/dL (6.0-8.0)
[2023-04-17 07:17] LABS: PLATELET SUFFICIENCY NORMAL (NORMAL); TOTAL CELLS COUNTED 100 #CELLS
[2023-04-17 08:00] VITALS: BP 103/52
[2023-04-17 12:00] VITALS: BP 116/70
[2023-04-17 16:00] VITALS: BP 114/54
[2023-04-17] MEDS ORDERED: LEVOFLOXACIN750 M2 PO (19:17)
[2023-04-17 20:00] VITALS: BP 121/50
[2023-04-18] VITALS: BP 104/53
[2023-04-18 04:26] LABS: HEMATOCRIT 36.8 % (37.0-47.0); MEAN CELL VOLUME 91.1 fl (81.0-99.0); MEAN CORPUSCULAR HGB CONC 31.8 g/dl (33.0-37.0); MEAN PLATELET VOLUME 10.1 fl (9.6-12.3); PLATELET COUNT AUTOMATED 202 10*3/uL (130-400); RED BLOOD COUNT 4.04 10*6/uL (4.10-5.10); RED CELL DISTRI WIDTH 13.2 % (0-14.5); WHITE BLOOD COUNT 12.2 10*3/uL (4.8-10.8)
[2023-04-18 04:28] LABS: MANUAL DIFF REFLEX YES
[2023-04-18 04:48] LABS: ALKALINE PHOSPHATASE 62 U/L (46-116); BUN 13 mg/dl (9-23); CHLORIDE 97 mmol/L (98-107); PLATELET SUFFICIENCY NORMAL (NORMAL); POTASSIUM 4.3 mmol/L (3.4-5.1); SGPT/ALT 40 U/L (10-49); TOTAL CELLS COUNTED 100 #CELLS; TOTAL PROTEIN 6.5 gm/dL (6.0-8.0)
[2023-04-18 08:00] VITALS: BP 121/37
[2023-04-18 12:00] VITALS: BP 122/58
[2023-04-18] MEDS ORDERED: GLUCOPHAGE500 MG PO (13:33)
[2023-04-18] MEDS ORDERED: PREDNISONE10 MG PO (13:33)
[2023-04-18] MEDS ORDERED: VISTARIL25 MG PO (14:38)
== END 2023-04-18 15:45 | disposition home or self-care (01) | DRG 871 ==
LOC: ED 16:18 → ICCU 18:01 → EDHOLD 18:01 → ICCU 21:40
PROVIDERS: Internal Medicine Critical Care Medicine; Student in an Organized Health Care Education/Training Program; ADMIT Internal Medicine; ATTEND Internal Medicine
PROC: 5A09357 Assistance with Respiratory Ventilation, Less than 24 Consecutive Hours, Continuous Positive Airway Pressure (ICD-10-PCS; principal; 2023-04-17)
PROC: 5A09357 Assistance with Respiratory Ventilation, Less than 24 Consecutive Hours, Continuous Positive Airway Pressure (ICD-10-PCS; 2023-04-17)
DX: A41.9 Sepsis, unspecified organism (principal); J18.9 Pneumonia, unspecified organism; J96.21 Acute and chronic respiratory failure with hypoxia; J96.22 Acute and chronic respiratory failure with hypercapnia; E87.3 Alkalosis; R65.20 Severe sepsis without septic shock; K76.0 Fatty (change of) liver, not elsewhere classified; J43.9 Emphysema, unspecified; E11.65 Type 2 diabetes mellitus with hyperglycemia; F41.9 Anxiety disorder, unspecified; Z87.891 Personal history of nicotine dependence; Z88.1 Allergy status to other antibiotic agents; Z86.16 Personal history of COVID-19

== ENCOUNTER → 2023-05-18 | Outpatient (CLI) | payer OTHER, MEDICARE ==
[~2023-05-18] MED LIST changes: +GLUCOPHAGE500 MG PO; +LEVOFLOXACIN750 M2 PO; +VISTARIL25 MG PO; +XARE20MG PO
== END | disposition home or self-care (01) ==
LOC: RAD 15:43
PROVIDERS: ATTEND Internal Medicine
DX: J44.9 Chronic obstructive pulmonary disease, unspecified (principal); J98.11 Atelectasis; J18.9 Pneumonia, unspecified organism

== ENCOUNTER 2025-05-18 19:08 | Emergency (ER) | payer MEDICARE ==
[~2025-05-18] VITALS: Ht 170.1 cm; Wt 90.7 kg
[~2025-05-18 19:08] MED LIST changes: +ASPIRIN81 M1 PO; +ATORVASTATIN CA20 M1 PO; +GOOD NEIGHBOR L10 MG PO; +JARDIANCE10 MG PO; +METFORMIN HYD1000 MG PO; +PIOGLITAZONE HC45 MG PO; +SPIRIVA -- 3018 MCG INH; +VITAMIN D3125 MCG PO
[2025-05-18 19:28] VITALS: BP 140/64
[2025-05-18 19:44] LABS: BASO # 0.0 10*3/uL (0.0-0.1); BASO % 0.4 % (0.0-1.0); EOS # 0.1 10*3/uL (0.0-0.4); EOS % 1.0 % (1.0-4.0); MEAN CELL VOLUME 96.2 fl (81.0-99.0); MEAN CORPUSCULAR HGB 29.3 pg (27.0-31.0); MEAN PLATELET VOLUME 9.7 fl (9.6-12.3); MONO # 1.0 10*3/uL (0.1-1.0); MONO % 8.8 % (3.0-9.0); NEUT # 7.5 10*3/uL (2.3-7.9); NEUT % 67.4 % (47.0-73.0); NUCLEATED RED BLOOD CELL 0.0 % (0.0-0.0); NUCLEATED RED BLOOD CELL 0.0 10*3/uL (0.0-0.0); PLATELET COUNT AUTOMATED 237 10*3/uL (130-400); RED CELL DISTRI WIDTH 13.2 % (0-14.5)
[2025-05-18 20:05] LABS: BUN 12 mg/dl (9-23)
[2025-05-18] MEDS ORDERED: ZITHROMAX250 MG PO (20:50)
[2025-05-18] MEDS ORDERED: AZITHROMYCIN 250 MG TAB PO ONE (20:50)
== END 2025-05-18 20:56 | disposition home or self-care (01) ==
LOC: ED 19:08
PROVIDERS: Nurse Practitioner Family
DX: J44.1 Chronic obstructive pulmonary disease with (acute) exacerbation (principal); Z20.822 Contact with and (suspected) exposure to COVID-19

== ENCOUNTER → 2025-06-13 | Outpatient (CLI) | payer MEDICARE ==
[~2025-06-13] MED LIST changes: +MONTELUKAST SOD10 MG PO; +TYLENOL EXTRA500 M2 PO; +ZITHROMAX250 MG PO
[2025-06-13 16:06] LABS: ABG O2 SATURATION 92.1 % (94.0-98.0); ARTERIAL BLOOD GAS PH 7.386 (7.350-7.450); ARTERIAL BLOOD GAS PO2 63.3 mmHg (83.0-108.0)
[2025-06-13 16:07] LABS: ABG BASE EXCESS 4.6 mmol/L (-2.0-3.0)
== END | disposition home or self-care (01) ==
LOC: LAB 15:43
PROVIDERS: ATTEND Internal Medicine
DX: J44.9 Chronic obstructive pulmonary disease, unspecified (principal)